=== PATIENT | female | born 1995 | race Caucasian/White ===

== ENCOUNTER 2022-09-15 10:21 | Emergency (ER) | payer SELFPAY ==
[~2022-09-15] VITALS: Ht 160 cm; Wt 81.6 kg
--- NOTE | 2022-09-15 10:40 | NUR ---
BIB SELF C/O cough, sore throat, bodyache since tuesday. neck pain since yesterday.was at urgent care today, negative for covid/strep test. afebrile, -rash
--- NOTE | 2022-09-15 10:49 | NUR ---
DR VIRGEN AT BEDSIDE
[2022-09-15] MEDS ORDERED: IBUPROFEN 600 MG TABLET ONE (10:59)
[2022-09-15] MEDS ORDERED: ACETAMINOPHEN 325 MG TABLET ONE (10:59)
[2022-09-15] MEDS ORDERED: IBUPROFEN 600 MG TABLET PO ONE (11:00)
[2022-09-15] MEDS ORDERED: ACETAMINOPHEN 325 MG TABLET PO ONE (11:00)
--- NOTE | 2022-09-15 11:41 | NUR ---
covid and flu swab collected and sent to lab.
[2022-09-15] MEDS ORDERED: IBUP-1955 PO (12:53)
[2022-09-15] MEDS ORDERED: BENZ-13 PO (12:53)
[2022-09-15 13:07] VITALS: BP 94/66
--- NOTE | 2022-09-15 13:07 | NUR ---
Patient discharged to home in stable condition. Written and verbal after care instructions given. Patient verbalizes understanding of instruction.
== END 2022-09-15 13:09 | disposition home or self-care (01) ==
LOC: ER 10:29
DX: J06.9 Acute upper respiratory infection, unspecified (principal); B97.89 Other viral agents as the cause of diseases classified elsewhere; Z20.822 Contact with and (suspected) exposure to COVID-19; Z88.2 Allergy status to sulfonamides
CPT/HCPCS: 99283; 87804; U0003; C9803